=== PATIENT | male | born 1955 | race Caucasian/White ===

== ENCOUNTER → 2024-02-09 12:29 | Outpatient (REF) | payer BC, SELFPAY | LOC: RCS 12:29 | PROVIDERS: ATTENDING PHYSICIAN Internal Medicine; FAMILY PHYSICIAN Internal Medicine | DX: I10 Essential (primary) hypertension (principal); R42 Dizziness and giddiness; R73.03 Prediabetes | CPT/HCPCS: 93017 ==

== ENCOUNTER → 2024-02-29 07:08 | Outpatient (REF) | payer BC, SELFPAY | LOC: HWRCS 07:08 | PROVIDERS: ATTENDING PHYSICIAN Internal Medicine; FAMILY PHYSICIAN Internal Medicine | DX: I10 Essential (primary) hypertension (principal); R42 Dizziness and giddiness; R73.03 Prediabetes | CPT/HCPCS: 93306 ==

== ENCOUNTER → 2025-02-25 07:14 | Outpatient (REF) | payer BC, SELFPAY | LOC: HWRCS 07:14 | PROVIDERS: ATTENDING PHYSICIAN Internal Medicine; FAMILY PHYSICIAN Internal Medicine | DX: I10 Essential (primary) hypertension (principal); I44.0 Atrioventricular block, first degree; I35.1 Nonrheumatic aortic (valve) insufficiency; I77.810 Thoracic aortic ectasia | CPT/HCPCS: 93306 ==